=== PATIENT | male | born 1940 | race Caucasian/White ===

== ENCOUNTER 2016-05-30 12:00 | Emergency (ER) | payer MEDICARE, OTHER ==
[2016-05-30 12:36] LABS: HEMOGLOBIN 12.6 gm/dl (14.0-17.5); RED BLOOD COUNT 3.83 M/UL (4.20-5.50); WHITE BLOOD COUNT 8.8 K/UL (4.5-11.0)
[2016-05-30 13:12] LABS: BUN/CREATININE RATIO 31 (0-10)
== END 2016-05-30 15:20 | disposition home or self-care (01) ==
LOC: ER1 12:00
PROVIDERS: Emergency Medicine
DX: I11.0 Hypertensive heart disease with heart failure (principal); I50.1 Left ventricular failure, unspecified; D64.9 Anemia, unspecified; J44.9 Chronic obstructive pulmonary disease, unspecified; R79.89 Other specified abnormal findings of blood chemistry; Z90.49 Acquired absence of other specified parts of digestive tract
CPT/HCPCS: 36600; 71010; 80053; 82550; 82553; 82803; 83605; 83874; 83880; 84484; 85025; 85379; 93005; 94640; 94664; 99283

== ENCOUNTER 2016-06-01 18:30 | Inpatient (IN) | payer MEDICARE, OTHER ==
[~2016-06-01] VITALS: Ht 170.2 cm; Wt 54.6 kg
[2016-06-01 19:14] LABS: HEMOGLOBIN 12.1 gm/dl (14.0-17.5); RED BLOOD COUNT 3.67 M/UL (4.20-5.50)
[2016-06-01 19:15] LABS: WHITE BLOOD COUNT 6.3 K/UL (4.5-11.0)
[2016-06-01 19:38] LABS: BUN/CREATININE RATIO 28 (0-10)
[2016-06-02 07:04] LABS: BUN/CREATININE RATIO 21 (0-10)
[2016-06-02] MEDS ORDERED: LASIX20 MG PO (12:24)
[2016-06-02] MEDS ORDERED: VENTOLIN HFA 66.7 GM INH (12:25)
[2016-06-02] MEDS ORDERED: CEFDINIR300 MG PO (12:25)
[2016-06-03 06:04] LABS: HEMOGLOBIN 12.7 gm/dl (14.0-17.5); RED BLOOD COUNT 3.86 M/UL (4.20-5.50)
[2016-06-03 06:08] LABS: WHITE BLOOD COUNT 4.4 K/UL (4.5-11.0)
[2016-06-03 06:34] LABS: BUN/CREATININE RATIO 29 (0-10)
[2016-06-03] MEDS ORDERED: LEVAQUIN250 MG PO (13:41)
== END 2016-06-03 16:58 | disposition home or self-care (01) | DRG 291 ==
LOC: ER1 18:30 → M/S 22:25 → ZEROF 22:25 → M/S 06-02 00:47
PROVIDERS: Emergency Medicine; Physician Assistant; ADMIT Internal Medicine
DX: I11.0 Hypertensive heart disease with heart failure (principal); J18.9 Pneumonia, unspecified organism; E87.1 Hypo-osmolality and hyponatremia; Z68.1 Body mass index [BMI] 19.9 or less, adult; I50.43 Acute on chronic combined systolic (congestive) and diastolic (congestive) heart failure; R63.6 Underweight; Z72.0 Tobacco use; Z90.49 Acquired absence of other specified parts of digestive tract; Z98.890 Other specified postprocedural states
CPT/HCPCS: ECHO; 36415; 36600; 71010; 71250; 80048; 80053; 80061; 81001; 82550; 82553; 82803; 83605; 83874; 83880; 84443; 84484; 85025; 85027; 85379; 85610; 85730; 87040; 87070; 87205; 93005; 93306; 94640; 94664; 96374; 99283; 99285; J1650; J1940; J1956; Q0163

== ENCOUNTER 2016-07-18 07:38 | Inpatient (IN) | payer MEDICARE, OTHER ==
[~2016-07-18] VITALS: Ht 177.8 cm; Wt 68.0 kg
[~2016-07-18 07:38] MED LIST: CEFDINIR300 MG PO; LASIX20 MG PO; LEVAQUIN250 MG PO; VENTOLIN HFA 66.7 GM INH
[2016-07-18 08:31] LABS: HEMOGLOBIN 13.3 gm/dl (14.0-17.5); RED BLOOD COUNT 4.07 M/UL (4.20-5.50); WHITE BLOOD COUNT 5.3 K/UL (4.5-11.0)
[2016-07-18 08:52] LABS: BUN/CREATININE RATIO 23 (0-10)
[2016-07-19 06:12] LABS: HEMOGLOBIN 12.4 gm/dl (14.0-17.5); RED BLOOD COUNT 3.84 M/UL (4.20-5.50); WHITE BLOOD COUNT 5.9 K/UL (4.5-11.0)
[2016-07-19 06:30] LABS: BUN/CREATININE RATIO 29 (0-10)
--- NOTE | 2016-07-19 14:38 | NUR ---
PATIENT UNCOOPERATIVE, AGGRESSIVE AND VERB HE IS LEAVING AND GOING HOME CONTACTED DR. CASTRO AND ACKNOWLEDGED DR. CASTRO SPOKEN TO PATIENT AND FAMILY MEMBER AND PATIENT SIGNED AMA FORM. FAMILY MEMBER PRESENT DURING THIS TIME. PATIENT REFUSED TO GET EDUCATION AND VS.
== END 2016-07-19 14:48 | disposition left against medical advice (07) | DRG 65 ==
LOC: ER1 07:38 → M/S 10:36 → ZEROF 10:36 → M/S 17:24
PROVIDERS: Emergency Medicine; Internal Medicine Infectious Disease; ADMIT Internal Medicine
DX: I63.411 Cerebral infarction due to embolism of right middle cerebral artery (principal); I42.0 Dilated cardiomyopathy; R64 Cachexia; I51.7 Cardiomegaly; R94.31 Abnormal electrocardiogram [ECG] [EKG]; F17.220 Nicotine dependence, chewing tobacco, uncomplicated; E53.8 Deficiency of other specified B group vitamins; I27.2 Other secondary pulmonary hypertension; Z91.19 Patient's noncompliance with other medical treatment and regimen; Z96.649 Presence of unspecified artificial hip joint; Z90.49 Acquired absence of other specified parts of digestive tract; Z51.89 Encounter for other specified aftercare
CPT/HCPCS: 36415; 70450; 70544; 70551; 71010; 80048; 80053; 80061; 81001; 82550; 82553; 82607; 82728; 82746; 83540; 83550; 83690; 83874; 84484; 85025; 85027; 85610; 85730; 87086; 93005; 97110; 97530; 99285; G0480; J3420; J7030